=== PATIENT | male | born 1970 ===

== ENCOUNTER 2016-10-03 05:46 | Day surgery (SDC) | payer OTHER ==
[2016-10-03] MEDS ORDERED: Dextrose 5%-0.45% NaCl 1,000 ML IV SCH (06:00)
[2016-10-03] MEDS ORDERED: Sodium Chloride 0.9% 10 ML Syringe FLUSH PRN (06:00)
[2016-10-03] MEDS ORDERED: Midazolam 1 MG/ML 2 ML SDV ONE (06:11)
[2016-10-03] MEDS ORDERED: fentaNYL 100 MCG/2 ML SDV ONE (06:11)
[2016-10-03] MEDS ORDERED: fentaNYL 100 MCG/2 ML SDV IV ONE ×3 (06:36→15:45)
[2016-10-03] MEDS ORDERED: Midazolam 1 MG/ML 2 ML SDV IV ONE ×4 (06:38→15:45)
--- NOTE | 2016-10-03 07:12 | OR ---
DATE: 10/03/2016 PROCEDURES: Esophagogastroduodenoscopy and multiple pinch biopsies. INSTRUMENT USED: GIF-H180 Olympus video panendoscope. PREMEDICATIONS: No oral topical anesthesia used. Fentanyl 100 mcg intravenous, Versed 2 mg intravenous. The procedure was done under pulse oximetry, BP recording, and cardiac monitor technician. INDICATION: The patient with longstanding heartburn, continuing to have difficulties of throat discomfort, on PPI. Esophagogastroduodenoscopy is performed for detection of any active erosive lesions, Scott esophagus and/or malignancy also under consideration, H. pylori status to be determined, endoscopic hemostasis therapy if needed. DESCRIPTION OF PROCEDURE: The scope was passed with ease. Adequate visualization of the esophagus was made from proximal to distal areas. No upper esophageal lesions identified. No distal esophageal stricture. No uphill or downhill esophageal varices. No Lizzy-Treadwell tear. No evidence of erosive esophagitis by [place] criteria. No esophageal polyp or tumor mass identified. Z-line was seen at around 40 cm distal to the oral verge, configuration consistent with grade 1 by ZAP classification. No proximal gastric varices noted. Gastric fundus examination by retroflexion showed no polypoid lesions. No gastric ulcer, malignant mass, or vascular ectasia identified. Duodenal bulb showed no ulcer. Visualized second part of the duodenum was unremarkable. Multiple pinch biopsies were taken from the gastric antrum and proximal body and sent for PyloriTek test for H. pylori, and if negative in an hour, tissue is to be sent for histopathology. No bleeding was noted from any of the visualized areas at the completion of examination. Photographs were taken of the duodenal bulb, gastric antrum, fundus, and distal esophagus. IMPRESSION: Normal study. The patient tolerated the procedure well. [facility] /[id number]
== END 2016-10-03 08:47 | disposition home or self-care (01) ==
LOC: DL.ENDO 05:46
PROVIDERS: ATTEND Internal Medicine Gastroenterology
DX: R12 Heartburn (principal); E66.9 Obesity, unspecified; Z98.890 Other specified postprocedural states; Z79.899 Other long term (current) drug therapy
CPT/HCPCS: 43239; 87077; J2250; J3010; J7042

== ENCOUNTER 2023-08-27 06:27 | Day surgery (SDC) | payer BC, OTHER ==
[2023-08-27] MEDS ORDERED: Midazolam 1 MG/ML 2 ML SDV IV ONE (06:28)
[2023-08-27] MEDS ORDERED: fentaNYL 100 MCG/2 ML SDV IV ONE (06:28)
[2023-08-27] MEDS: Dextrose 5%-0.45% NaCl 1,000 ML IV SCH (06:48)
[2023-08-27] MEDS ORDERED: fentaNYL 100 MCG/2 ML SDV ONE (07:33)
[2023-08-27] MEDS ORDERED: Midazolam 1 MG/ML 2 ML SDV ONE (07:33)
[2023-08-27] MEDS: fentaNYL 100 MCG/2 ML SDV IV ONE ×2 (07:36→07:37)
[2023-08-27] MEDS: Midazolam 1 MG/ML 2 ML SDV IV ONE ×6 (07:38→07:46)
== END 2023-08-27 09:05 | disposition home or self-care (01) ==
LOC: DL.ENDO 06:27
PROVIDERS: ATTEND Internal Medicine Gastroenterology
DX: Z12.11 Encounter for screening for malignant neoplasm of colon (principal); K21.9 Gastro-esophageal reflux disease without esophagitis; E78.5 Hyperlipidemia, unspecified; I10 Essential (primary) hypertension; E03.9 Hypothyroidism, unspecified; R73.9 Hyperglycemia, unspecified; E66.09 Other obesity due to excess calories; Z68.37 Body mass index [BMI] 37.0-37.9, adult
CPT/HCPCS: J2250; J3010; J7042